=== PATIENT | male | born 1990 | race Caucasian/White ===

== ENCOUNTER 2017-02-14 03:42 | Emergency (ER) | payer BC ==
[2017-02-14 04:05] VITALS: BP 142/61
--- NOTE | 2017-02-14 04:42 | EDM.PDOC ---
ED HPI GENERAL MEDICAL PROBLEM - General Chief Complaint: Lower Extremity Injury/Pain Stated Complaint: PAIN IN LEFT HIP Time Seen by Provider: 02/14/17 04:37 - History of Present Illness INITIAL COMMENTS - FREE TEXT/NARRATIVE: HISTORY AND PHYSICAL: History of present illness: Patient is 26-year-old white male sensory concern of left hip and groin pain that occurred after he was doing some heavy squatting with weights denies any urinary symptoms or other complaints Review of systems: As per history of present illness and below otherwise all systems reviewed and negative. Past medical history: As per history of present illness and as reviewed below otherwise noncontributory. Surgical history: As per history of present illness and as reviewed below otherwise noncontributory. Social history: No reported history of drug or alcohol abuse. Family history: As per history of present illness and as reviewed below otherwise noncontributory. Physical exam: HEENT: Atraumatic, normocephalic, pupils reactive, negative for conjunctival pallor or scleral icterus, mucous membranes moist, throat clear, neck supple, nontender, trachea midline. Lungs: Clear to auscultation, breath sounds equal bilaterally, chest nontender. Heart: S1S2, regular, negative for clicks, rubs, or JVD. Abdomen: Soft, nondistended, nontender. Negative for masses or hepatosplenomegaly. Negative for costovertebral tenderness. Pelvis: Stable nontender. Genitourinary: Deferred. Rectal: Deferred. Extremities: Atraumatic, negative for cords or calf pain. Neurovascular unremarkable. Hip grossly unremarkable Neuro: Awake, alert, oriented. Cranial nerves II through XII unremarkable. Cerebellum unremarkable. Motor and sensory unremarkable throughout. Exam nonfocal. Diagnostics: X-ray left hip UA Therapeutics: None Impression: #1 left hip/groin injury Definitive disposition and diagnosis as appropriate pending reevaluation and review of above. Left Hip Pain Score (Numeric/FACES): 10 - Related Data Allergies Allergy/AdvReac Type Severity Reaction Status Date / Time No Known Allergies Allergy Verified 02/14/17 03:59 Home Meds: Home Meds . [No Known Home Meds] 02/14/17 [History] Past Medical History - Past Health History Medical/Surgical History: Denies Medical/Surgical History - Infectious Disease History Infectious Disease History: Reports: Chicken Pox Social & Family History - Family History Family Medical History: Noncontributory - Tobacco Use Smoking Status *Q: Current Some Day Smoker Years of Tobacco use: 2 Packs/Tins Daily: 0.5 - Recreational Drug Use Recreational Drug Use: No Review of Systems - Review of Systems Review Of Systems: ROS reveals no pertinent complaints other than HPI. ED EXAM, GENERAL - Physical Exam Exam: See Below Course - Vital Signs Last Recorded V/S: Last Vital Signs Temp 36.1 C 02/14/17 03:49 Pulse 88 02/14/17 03:49 Resp 18 02/14/17 03:49 BP 142/61 H 02/14/17 03:49 Pulse Ox 96 02/14/17 03:49 - Orders/Labs/Meds Orders: Active Orders 24 hr Category Date Time Status Hip Min 2V or 3V Lt [CR] Stat Exams 02/14/17 03:59 Taken Labs: Laboratory Tests 02/14/17 Range/Units 04:00 Urine Color YELLOW Urine Appearance CLEAR Urine pH 6.0 (5.0-8.0) Ur Specific [place] 1.025 (1.001-1.035) Urine Protein NEGATIVE (NEGATIVE) mg/dL Urine Glucose (UA) NEGATIVE (NEGATIVE) mg/dL Urine Ketones NEGATIVE (NEGATIVE) mg/dL Urine Occult Blood NEGATIVE (NEGATIVE) Urine Nitrite NEGATIVE (NEGATIVE) Urine Bilirubin NEGATIVE (NEGATIVE) Urine Urobilinogen 1.0 (<2.0) EU/dL Ur Leukocyte Esterase NEGATIVE (NEGATIVE) Urine RBC 0-1 (0-2/HPF) Urine WBC 0-1 (0-5/HPF) Ur Epithelial Cells RARE (NONE-FEW) Amorphous Sediment LIGHT (NEGATIVE) Urine Bacteria RARE (NEGATIVE) Departure - Departure Time of Disposition: 04:40 Disposition: Home, Self-Care 01 Condition: Good Clinical Impression: Hip injury - Discharge Information Referrals: PCP,None [Primary Care Provider] - Additional Instructions: The following information is given to patients seen in the emergency department who are being discharged to home. This information is to outline your options for follow-up care. We provide all patients seen in our emergency department with a follow-up referral. The need for follow-up, as well as the timing and circumstances, are variable depending upon the specifics of your emergency department visit. If you don't have a primary care physician on staff, we will provide you with a referral. We always advise you to contact your personal physician following an emergency department visit to inform them of the circumstance of the visit and for follow-up with them and/or the need for any referrals to a consulting specialist. The emergency department will also refer you to a specialist when appropriate. This referral assures that you have the opportunity for followup care with a specialist. All of these measure are taken in an effort to provide you with optimal care, which includes your followup. Under all circumstances we always encourage you to contact your private physician who remains a resource for coordinating your care. When calling for followup care, please make the office aware that this follow-up is from your recent emergency room visit. If for any reason you are refused follow-up, please contact the [facility] emergency department at and asked to speak to the emergency department charge nurse. [facility] [address], [address] [place] [address] Ultram as prescribed call to schedule routine appointment with orthopedic clinic above crutches as directed return as needed as discussed] - My Orders Last 24 Hours: My Active Orders 02/14/17 03:59 Hip Min 2V or 3V Lt [CR] Stat - Assessment/Plan Last 24 Hours: My Active Orders 02/14/17 03:59 Hip Min 2V or 3V Lt [CR] Stat
--- NOTE | 2017-02-14 14:12 | CR ---
EXAM DATE: 02/14/17 PATIENT'S AGE: 26 Patient: RENATA ROSE Facility: [place], [place] Site . Site : 1990 Study: XRay Hip Left 6437-02/14/2017 4:27:06 AM Ordering Physician: Doctor Alexander Final Report: INDICATION: injury while doing weight lifting/squats pain Lt hip joint since Saturday 02/10 TECHNIQUE: Hip radiograph 2 views left COMPARISON: None FINDINGS: Bones: Alignment is normal. No acute fractures or aggressive bone lesions identified. Joint spaces: Unremarkable. No joint effusion is identified by radiography. Soft tissues: Unremarkable. No radiopaque foreign bodies are seen. IMPRESSION: 1. No acute osseous injuries are noted. Dictated by: Yovany Bender MD @ 02/14/2017 04:31:23 (Electronic Signature) Report Signed by Proxy. [facility]ITAL[facility]
== END 2017-02-14 04:50 | disposition home or self-care (01) ==
LOC: MW.ED 03:42
DX: S79.912A Unspecified injury of left hip, initial encounter (principal); F17.210 Nicotine dependence, cigarettes, uncomplicated; Y93.B9 Activity, other involving muscle strengthening exercises
CPT/HCPCS: 73502-26-LT; 73502-LT; 81001; 99282; 99283

== ENCOUNTER 2017-02-19 20:43 | Observation (INO) | payer BC ==
[2017-02-19] MEDS ORDERED: Sodium Chloride 0.9% 1,000 ML IV ONE (20:55)
--- NOTE | 2017-02-19 20:56 | EDM.PDOC ---
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 This is relevant due to CT findings. I did discuss with radiology finding of deep induration and gas in the trochanter and trochanteric region consistent with injecting himself as well as similar findings on lower abdomen. He has presented within last few days for left hip pain an x-ray was performed there is no redness warmth he does have pain with ambulation of the hip but is not tender with passive range of motion. Since initial complaint the muscle cramping and dark urine as he is a heavy weight cafe worker performing squats rhabdomyolysis is in the cards and certainly does have a mild rhabdomyolysis No fever nausea vomiting chills sweats no chest pain shortness breath headache dizziness or palpitation no bowel symptoms Review of systems: As per history of present illness and below otherwise all systems reviewed and negative. Past medical history: As per history of present illness and as reviewed below otherwise noncontributory. Surgical history: As per history of present illness and as reviewed below otherwise noncontributory. Social history: No reported history of drug or alcohol abuse. Family history: As per history of present illness and as reviewed below otherwise noncontributory. Physical exam: HEENT: Atraumatic, normocephalic, pupils reactive, negative for conjunctival pallor or scleral icterus, mucous membranes moist, throat clear, neck supple, nontender, trachea midline. Lungs: Clear to auscultation, breath sounds equal bilaterally, chest nontender. Heart: S1S2, regular, negative for clicks, rubs, or JVD. Abdomen: Soft, nondistended, nontender. Negative for masses or hepatosplenomegaly. Negative for costovertebral tenderness. Pelvis: Stable nontender. Genitourinary: Deferred. Rectal: Deferred. Extremities: Atraumatic, negative for cords or calf pain. Neurovascular unremarkable. Left hip is tender with palpation over trochanter Neuro: Awake, alert, oriented. Cranial nerves II through XII unremarkable. Cerebellum unremarkable. Motor and sensory unremarkable throughout. Exam nonfocal. Diagnostics: []CBC CMP UA Cardiac enzymes Therapeutics: []1 L normal saline bolus Morphine 2 mg IV Zofran 8 mg IV We will admit to Alex Johnson has been seen and evaluated the patient recommend consulting ortho concerning the hip Impression: []Muscle cramping Rhabdomyolysis Abdominal pain Dehydration Hypotension after 1 L resolved Elevated liver function CT findings consistent with supplement injection Left hip pain Definitive disposition and diagnosis as appropriate pending reevaluation and review of above. Left Hip Pain Score (Numeric/FACES): 10 - Related Data Allergies Allergy/AdvReac Type Severity Reaction Status Date / Time No Known Allergies Allergy Verified 02/19/17 20:57 Home Meds: Home Meds . [No Known Home Meds] 02/14/17 [History] Past Medical History - Past Health History Medical/Surgical History: Denies Medical/Surgical History - Infectious Disease History Infectious Disease History: Reports: Chicken Pox Social & Family History - Family History Family Medical History: Noncontributory - Tobacco Use Smoking Status *Q: Current Some Day Smoker Years of Tobacco use: 2 Packs/Tins Daily: 0.5 - Recreational Drug Use Recreational Drug Use: No Review of Systems - Review of Systems Review Of Systems: ROS reveals no pertinent complaints other than HPI. ED EXAM, GENERAL - Physical Exam Exam: See Below Course - Vital Signs Last Recorded V/S: Last Vital Signs Temp 36.5 C 02/19/17 20:51 Pulse 116 H 02/19/17 23:40 Resp 20 02/19/17 23:40 BP 165/93 H 02/19/17 23:40 Pulse Ox 91 L 02/19/17 23:40 - Orders/Labs/Meds Orders: Active Orders 24 hr Category Date Time Status Abdomen Pelvis w Cont [CT] Stat Exams 02/19/17 21:19 Taken CHLAMYDIA TRACHOMATIS/GC AMPLF Stat Lab 02/19/17 20:59 Received CULTURE BLOOD [BC] Stat Lab 02/19/17 21:28 Received CULTURE BLOOD [BC] Stat Lab 02/19/17 21:33 Received HYDROmorphone [Dilaudid] Med 02/19/17 23:43 Active 0.5 mg IVPUSH ONETIME PRN Sodium Chloride 0.9% [Normal Saline] 1,000 ml Med 02/19/17 22:00 Active IV STAT Blood Culture x2 Reflex Set [OM.PC] Stat Oth 02/19/17 21:19 Ordered Medication Orders Hydromorphone HCl (Dilaudid) 0.5 mg IVPUSH ONETIME PRN PRN Reason: Pain Sodium Chloride (Normal Saline) 1,000 mls @ 200 mls/hr IV STAT MICHAEL Last Admin: 02/19/17 21:55 Dose: 200 mls/hr Labs: Laboratory Tests 02/19/17 02/19/17 02/19/17 Range/Units 20:59 21:07 21:07 WBC 14.15 H (4.0-11.0) K/uL RBC 5.52 (4.50-5.90) M/uL Hgb 16.6 (13.0-17.0) g/dL Hct 47.1 (38.0-50.0) % MCV 85.3 (80.0-98.0) fL MCH 30.1 (27.0-32.0) pg MCHC 35.2 (31.0-37.0) g/dL RDW Std Deviation 42.7 (28.0-62.0) fl RDW Coeff of Lew 14 (11.0-15.0) % Plt Count 190 (150-400) K/uL MPV 12.30 H (7.40-12.00) fL Neut % (Auto) CONTROL SYSTEM COMPUTER SCIENTIST Lymph % (Auto) CONTROL SYSTEM COMPUTER SCIENTIST Cecil % (Auto) CONTROL SYSTEM COMPUTER SCIENTIST Eos % (Auto) CONTROL SYSTEM COMPUTER SCIENTIST Baso % (Auto) CONTROL SYSTEM COMPUTER SCIENTIST Neut # (Auto) CONTROL SYSTEM COMPUTER SCIENTIST Lymph # (Auto) CONTROL SYSTEM COMPUTER SCIENTIST Cecil # (Auto) CONTROL SYSTEM COMPUTER SCIENTIST Eos # (Auto) CONTROL SYSTEM COMPUTER SCIENTIST Baso # (Auto) CONTROL SYSTEM COMPUTER SCIENTIST Add Manual Diff YES Neutrophils % (Manual) 57 (48.0-80.0) % Band Neutrophils % 26 % Lymphocytes % (Manual) 7 L (16.0-40.0) % Monocytes % (Manual) 9 (0.0-15.0) % Basophils % (Manual) 1 (0.0-1.5) % Nucleated RBC % 0.0 /100WBC Absolute Seg Neuts 8.1 Band Neutrophils # 3.7 Lymphocytes # (Manual) 1.0 Monocytes # (Manual) 1.3 Basophils # (Manual) 0 Nucleated RBCs # 0 K/uL Lactate (0.20-2.00) mmol/L Sodium 131 L (136-146) mmol/L Potassium 4.1 (3.5-5.1) mmol/L Chloride 97 L (98-110) mmol/L Carbon Dioxide 21 (21-31) mmol/L BUN 21 (6.0-23.0) mg/dL Creatinine 1.1 (0.6-1.5) mg/dL Est Cr Clr Drug Dosing 109.74 mL/min Estimated GFR (MDRD) > 60.0 ml/min Glucose 131 H (60-110) mg/dL Calcium 9.0 (8.8-10.8) mg/dL Total Bilirubin 2.5 H (0.1-1.5) mg/dL AST 275 H (5-40) IU/L ALT 247 H (8-54) IU/L Alkaline Phosphatase 106 (40-150) Creatine Kinase 915 H (9-236) IU/L CK-MB (CK-2) 5.4 (0-6.6) ng/ml Troponin I (0.0-0.29) NG/ML Total Protein 6.6 (6.0-8.0) g/dL Albumin 3.0 L (3.5-5.0) g/dL Globulin 3.6 H (2.0-3.5) g/dL Albumin/Globulin Ratio 0.8 L (1.3-2.8) Urine Color DARK YELLOW Urine Appearance SLT CLOUDY Urine pH 6.0 (5.0-8.0) Ur Specific [place] 1.025 (1.001-1.035) Urine Protein >=300 (NEGATIVE) mg/dL Urine Glucose (UA) NEGATIVE (NEGATIVE) mg/dL Urine Ketones NEGATIVE (NEGATIVE) mg/dL Urine Occult Blood LARGE H (NEGATIVE) Urine Nitrite NEGATIVE (NEGATIVE) Urine Bilirubin MODERATE H (NEGATIVE) Urine Ictotest NEGATIVE Urine Urobilinogen >=8.0 H (<2.0) EU/dL Ur Leukocyte Esterase NEGATIVE (NEGATIVE) Urine RBC 0-2 (0-2/HPF) Urine WBC 1-3 (0-5/HPF) Ur Epithelial Cells FEW (NONE-FEW) Amorphous Sediment FEW (NEGATIVE) Urine Bacteria FEW (NEGATIVE) Fine Granular Casts RARE (NEGATIVE) Urine Mucus FEW (NONE-MOD) 02/19/17 02/19/17 Range/Units 21:07 21:07 WBC (4.0-11.0) K/uL RBC (4.50-5.90) M/uL Hgb (13.0-17.0) g/dL Hct (38.0-50.0) % MCV (80.0-98.0) fL MCH (27.0-32.0) pg MCHC (31.0-37.0) g/dL RDW Std Deviation (28.0-62.0) fl RDW Coeff of Lew (11.0-15.0) % Plt Count (150-400) K/uL MPV (7.40-12.00) fL Neut % (Auto) Lymph % (Auto) Cecil % (Auto) Eos % (Auto) Baso % (Auto) Neut # (Auto) Lymph # (Auto) Cecil # (Auto) Eos # (Auto) Baso # (Auto) Add Manual Diff Neutrophils % (Manual) (48.0-80.0) % Band Neutrophils % % Lymphocytes % (Manual) (16.0-40.0) % Monocytes % (Manual) (0.0-15.0) % Basophils % (Manual) (0.0-1.5) % Nucleated RBC % /100WBC Absolute Seg Neuts Band Neutrophils # Lymphocytes # (Manual) Monocytes # (Manual) Basophils # (Manual) Nucleated RBCs # K/uL Lactate 1.6 (0.20-2.00) mmol/L Sodium (136-146) mmol/L Potassium (3.5-5.1) mmol/L Chloride (98-110) mmol/L Carbon Dioxide (21-31) mmol/L BUN (6.0-23.0) mg/dL Creatinine (0.6-1.5) mg/dL Est Cr Clr Drug Dosing mL/min Estimated GFR (MDRD) ml/min Glucose (60-110) mg/dL Calcium (8.8-10.8) mg/dL Total Bilirubin (0.1-1.5) mg/dL AST (5-40) IU/L ALT (8-54) IU/L Alkaline Phosphatase (40-150) Creatine Kinase (9-236) IU/L CK-MB (CK-2) (0-6.6) ng/ml Troponin I 0.22 (0.0-0.29) NG/ML Total Protein (6.0-8.0) g/dL Albumin (3.5-5.0) g/dL Globulin (2.0-3.5) g/dL Albumin/Globulin Ratio (1.3-2.8) Urine Color Urine Appearance Urine pH (5.0-8.0) Ur Specific [place] (1.001-1.035) Urine Protein (NEGATIVE) mg/dL Urine Glucose (UA) (NEGATIVE) mg/dL Urine Ketones (NEGATIVE) mg/dL Urine Occult Blood (NEGATIVE) Urine Nitrite (NEGATIVE) Urine Bilirubin (NEGATIVE) Urine Ictotest Urine Urobilinogen (<2.0) EU/dL Ur Leukocyte Esterase (NEGATIVE) Urine RBC (0-2/HPF) Urine WBC (0-5/HPF) Ur Epithelial Cells (NONE-FEW) Amorphous Sediment (NEGATIVE) Urine Bacteria (NEGATIVE) Fine Granular Casts (NEGATIVE) Urine Mucus (NONE-MOD) Meds: Medications Generic Name Dose Route Start Last Admin Trade Name Freq PRN Reason Stop Dose Admin Hydromorphone HCl 0.5 mg 02/19/17 23:43 Dilaudid IVPUSH ONETIME PRN Pain Sodium Chloride 1,000 mls @ 200 mls/hr 02/19/17 22:00 02/19/17 21:55 Normal Saline IV 200 mls/hr STAT MICHAEL Administration Discontinued Medications Generic Name Dose Route Start Last Admin Trade Name Freq PRN Reason Stop Dose Admin Hydromorphone HCl 0.5 mg 02/19/17 23:42 02/19/17 23:47 Dilaudid IVPUSH 02/19/17 23:43 0.5 mg ONETIME ONE Administration Sodium Chloride 1,000 mls @ 999 mls/hr 02/19/17 20:55 02/19/17 21:11 Normal Saline IV 02/19/17 21:55 999 mls/hr STAT ONE Administration Iopamidol 100 ml 02/19/17 22:14 02/19/17 22:25 Isovue Multipack-370 (76%) IVPUSH 02/19/17 22:15 100 ml ONETIME STA Administration Morphine Sulfate 2 mg 02/19/17 21:20 02/19/17 21:33 Morphine IV 02/19/17 21:21 2 mg ONETIME ONE Administration Ondansetron HCl 8 mg 02/19/17 21:20 02/19/17 21:33 Zofran IVPUSH 02/19/17 21:21 8 mg ONETIME ONE Administration Departure - Departure Time of Disposition: 00:03 Disposition: Refer to Observation Condition: Poor Clinical Impression: Rhabdomyolysis, Elevated liver function tests, Dehydration - Discharge Information Referrals: PCP,None [Primary Care Provider] - Forms: ED Department Discharge - My Orders Last 24 Hours: My Active Orders 02/19/17 20:59 CHLAMYDIA TRACHOMATIS/GC AMPLF Stat 02/19/17 21:19 Abdomen Pelvis w Cont [CT] Stat Blood Culture x2 Reflex Set [OM.PC] Stat 02/19/17 21:28 CULTURE BLOOD [BC] Stat 02/19/17 21:33 CULTURE BLOOD [BC] Stat 02/19/17 22:00 Sodium Chloride 0.9% [Normal Saline] 1,000 ml IV STAT 02/19/17 23:43 HYDROmorphone [Dilaudid] 0.5 mg IVPUSH ONETIME PRN - Assessment/Plan Last 24 Hours: My Active Orders 02/19/17 20:59 CHLAMYDIA TRACHOMATIS/GC AMPLF Stat 02/19/17 21:19 Abdomen Pelvis w Cont [CT] Stat Blood Culture x2 Reflex Set [OM.PC] Stat 02/19/17 21:28 CULTURE BLOOD [BC] Stat 02/19/17 21:33 CULTURE BLOOD [BC] Stat 02/19/17 22:00 Sodium Chloride 0.9% [Normal Saline] 1,000 ml IV STAT 02/19/17 23:43 HYDROmorphone [Dilaudid] 0.5 mg IVPUSH ONETIME PRN
[2017-02-19] MEDS ORDERED: Morphine 10 MG/ML Syringe IV ONE (21:20)
[2017-02-19] MEDS ORDERED: Ondansetron 4 MG/2 ML SDV IVPUSH ONE (21:20)
[2017-02-19 21:41] LABS: CHLORIDE,CL 97 mmol/L (98-110); SODIUM,NA 131 mmol/L (136-146)
[2017-02-19] MEDS ORDERED: Sodium Chloride 0.9% 1,000 ML IV SCH (22:00)
[2017-02-19] MEDS ORDERED: Iopamidol 755 MG/ML 500 ML Multipack Bottle IVPUSH STA (22:14)
[2017-02-19] MEDS ORDERED: HYDROmorphone 2 MG/ML Syringe IVPUSH ONE (23:42)
[2017-02-19] MEDS ORDERED: HYDROmorphone 2 MG/ML Syringe IVPUSH PRN (23:43)
[2017-02-20] MEDS ORDERED: Sodium Chloride 0.9% 1,000 ML IV ONE (00:47)
[2017-02-20] MEDS ORDERED: Acetaminophen 325 MG Tab PO PRN (00:50)
[2017-02-20] MEDS ORDERED: Ondansetron 4 MG/2 ML SDV IVPUSH PRN (00:51)
[2017-02-20] MEDS: Sodium Chloride 0.9% 1,000 ML IV SCH ×3 (02:10→11:09)
[2017-02-20] MEDS: Morphine 2 MG/ML Syringe IVPUSH PRN ×4 (02:21→09:01)
[2017-02-20] MEDS ORDERED: FLU Vacc QS 2017-18 (36mos UP)/PF 60 MCG/0.5 ML Syringe IM ONE (02:30)
[2017-02-20] MEDS ORDERED: cefTRIAXone 1,000 MG in Sodium Chloride 0.9% 50 ML IV ONE (05:06)
[2017-02-20 05:10] LABS: CHLORIDE,CL 100 mmol/L (98-110); SODIUM,NA 133 mmol/L (136-146)
[2017-02-20] MEDS ORDERED: cefTRIAXone 1 GM in Premix Bag 1 BAG IV ONE (05:15)
--- NOTE | 2017-02-20 09:18 | PCM.HP ---
H&P History of Present Illness - General Date of Service: 02/20/17 Admit Problem/Dx: Admission Diagnosis/Problem Admission Diagnosis/Problem Rhabdomyolysis - History of Present Illness Initial Comments - Free Text/Narative: 26 year old male admitted this morning for rhabdomyolysis, left hip pain and CT scan showing focal gas in the left greater trochanteric region. Patient states he injects Testosterone for muscle gain. He injected himself 2 weeks ago in the left hip. He was doing fine until he worked out his leg a few days later. He then developed left hip pain with walking. He was seen in ED on 02/14 and had XR of left hip that was normal. Over the next few days he developed worsening of left him pain, fever, malaise, chills, night sweats and diffuse malaise everywhere. He is having moderate to severe tenderness over the anterior hip. He complains of pain all over. He complains of pain in right hip as as well but he is able to move it with minimal difficulty. In the ED he was found to have temp of 38.2, hr 110-130, WBC count 14k, UA positive for blood. Kidney function was preserved with BUN 2.1 & Cr 1.1. CT Scan revealed focal gas at the greater trochanter. He was started on fluids, morphine and given Rocephin IV 1 gm. Left Hip Pain Score (Numeric/FACES): 9 - Related Data Allergies/Adverse Reactions: Allergies Allergy/AdvReac Type Severity Reaction Status Date / Time No Known Allergies Allergy Verified 02/19/17 20:57 Home Medications: Home Meds . [No Known Home Meds] 02/14/17 [History] Past Medical History - Past Health History Medical/Surgical History: Denies Medical/Surgical History HEENT History: Reports: Impaired Vision - Infectious Disease History Infectious Disease History: Reports: Chicken Pox - Past Surgical History HEENT Surgical History: Reports: None Social & Family History - Family History Family Medical History: Noncontributory - Tobacco Use Smoking Status *Q: Current Every Day Smoker Years of Tobacco use: 2 Packs/Tins Daily: 0.5 Second Hand Smoke Exposure: No - Caffeine Use Caffeine Use: Reports: Coffee, Energy Drinks, Soda, Tea Caffeine Use Comment: 2-3drinks each/day - Recreational Drug Use Recreational Drug Use: No H&P Review of Systems - Review of Systems: Review Of Systems: See Below General: Reports: Fever, Chills, Malaise, Weakness, Night Sweats, Diaphoresis Pulmonary: Reports: Shortness of Breath Cardiovascular: Reports: Palpitations Gastrointestinal: Reports: Abdominal Pain Genitourinary: Reports: Hematuria Musculoskeletal: Reports: Joint Pain, Joint Swelling, Muscle Pain Skin: Reports: Diaphoresis Neurological: Reports: No Symptoms Exam - Exam Exam: See Below - Vital Signs Vital Signs: Last Vital Signs Temp 37.3 C 02/20/17 08:01 Pulse 122 H 02/20/17 08:01 Resp 20 02/20/17 08:01 BP 143/84 H 02/20/17 08:01 Pulse Ox 94 L 02/20/17 08:01 Weight: 131.54 kg - Exam General: Alert, Oriented, Moderate Distress HEENT: Conjunctiva Clear Neck: Supple, Trachea Midline Lungs: Normal Respiratory Effort Cardiovascular: Tachycardia GI/Abdominal Exam: Tender Extremities: Other (left hip rom severely restricted. Slightest attempt to internally or externally rotate hip causes severe pain. Tenderness and induration present over anterior hip and groin. No redness of overlying skin. Full ROM of Right hip. No weakness of left foot digits. ). No: Pedal Edema Skin: Moist. No: Rash - Patient Data Lab Results Last 24 hrs: Laboratory Results - last 24 hr 02/20/17 02/20/17 Range/Units 04:20 04:20 WBC 13.88 H (4.0-11.0) K/uL RBC 5.12 (4.50-5.90) M/uL Hgb 15.0 (13.0-17.0) g/dL Hct 44.1 (38.0-50.0) % MCV 86.1 (80.0-98.0) fL MCH 29.3 (27.0-32.0) pg MCHC 34.0 (31.0-37.0) g/dL RDW Std Deviation 43.7 (28.0-62.0) fl RDW Coeff of Lew 14 (11.0-15.0) % Plt Count 164 (150-400) K/uL MPV 12.90 H (7.40-12.00) fL Add Manual Diff YES Neutrophils % (Manual) 56 (48.0-80.0) % Band Neutrophils % 26 % Lymphocytes % (Manual) 12 L (16.0-40.0) % Monocytes % (Manual) 6 (0.0-15.0) % Nucleated RBC % 0.0 /100WBC Absolute Seg Neuts 7.8 Band Neutrophils # 3.6 Lymphocytes # (Manual) 1.7 Monocytes # (Manual) 0.8 Nucleated RBCs # 0 K/uL Sodium 133 L (136-146) mmol/L Potassium 4.1 (3.5-5.1) mmol/L Chloride 100 (98-110) mmol/L Carbon Dioxide 23 (21-31) mmol/L BUN 18 (6.0-23.0) mg/dL Creatinine 0.9 (0.6-1.5) mg/dL Est Cr Clr Drug Dosing 134.31 mL/min Estimated GFR (MDRD) > 60.0 ml/min Glucose 132 H (60-110) mg/dL Calcium 8.0 L (8.8-10.8) mg/dL Creatine Kinase 709 H (9-236) IU/L Result Diagrams: 02/20/17 04:20 02/20/17 04:20 *Q Meaningful Use (ADM) - VTE *Q VTE Criteria *Q: - Stroke *Q Stroke Criteria *Q: - AMI *Q AMI Criteria *Q: Problem List Initiated/Reviewed/Updated: Yes Orders Last 24hrs: Active Orders 24 hr Category Date Time Status EKG 12 Lead [EKG Documentation Completion] [RC] ROUTINE Care 02/20/17 05:04 Active Regular Diet [DIET] Diet 02/20/17 Breakfast Active CXR [Chest 1V Frontal] [CR] Routine Exams 02/20/17 05:05 Taken CULTURE BLOOD [BC] Stat Lab 02/20/17 05:19 Received CULTURE BLOOD [BC] Stat Lab 02/20/17 05:29 Received VANCOMYCIN TROUGH [CHEM] Routine Lab 02/21/17 08:00 Ordered Acetaminophen [Tylenol] Med 02/20/17 00:50 Active 650 mg PO Q6H PRN Morphine Med 02/20/17 00:50 Active 2 mg IVPUSH Q2H PRN Ondansetron [Zofran] Med 02/20/17 00:51 Active 4 mg IVPUSH Q3H PRN Sodium Chloride 0.9% [Normal Saline] 1,000 ml Med 02/20/17 01:00 Active IV ASDIRECTED Vancomycin 1,500 mg Med 02/20/17 09:00 Active Sodium Chloride 0.9% [Normal Saline] 500 ml IV Q8H Vancomycin Pharmacy to Dose [Pharmacy to Dose - Med 02/20/17 08:30 Active Vancomycin] 1 dose .XX ASDIRECTED Blood Culture x2 Reflex Set [OM.PC] Stat Oth 02/20/17 05:05 Ordered Medication Orders Acetaminophen (Tylenol) 650 mg PO Q6H PRN PRN Reason: Pain Last Admin: 02/20/17 05:03 Dose: 650 mg Sodium Chloride (Normal Saline) 1,000 mls @ 300 mls/hr IV ASDIRECTED MICHAEL Last Admin: 02/20/17 05:59 Dose: 300 mls/hr Infusion: 02/20/17 05:30 Dose: 300 mls/hr Admin: 02/20/17 02:10 Dose: 300 mls/hr Vancomycin HCl 1,500 mg/ (Sodium Chloride) 500 mls @ 250 mls/hr IV Q8H [facility] Last Admin: 02/20/17 09:02 Dose: 250 mls/hr Morphine Sulfate (Morphine) 2 mg IVPUSH Q2H PRN PRN Reason: Pain Last Admin: 02/20/17 09:01 Dose: 2 mg Admin: 02/20/17 06:39 Dose: 2 mg Admin: 02/20/17 04:26 Dose: 2 mg Admin: 02/20/17 02:21 Dose: 2 mg Ondansetron HCl (Zofran) 4 mg IVPUSH Q3H PRN PRN Reason: Nausea/Vomiting Vancomycin HCl (Pharmacy To Dose - Vancomycin) 1 dose .XX ASDIRECTED [facility] Assessment/Plan Comment:: Assessment: 1. Bacteremia - gram positive clusters 2. Rhabdomyolyis 3. Left Hip Pain, tenderness and Induration 4. Focal gas at greater trochanter, on CT 5. Nonspecific soft tissue thickening of lower ventral abdominal wall, CT 6. Scattered nonspecific noncalcified pulmonary nodules within lung bases, on CT 7. Hepatomegaly and Splenomegaly 8. Leukocytosis 9. Hematuria 10. Elevated LFT Plan: Patient exam findings concerning for severely restricted left hip, with severe anterior pain and tenderness. There is also palpable induration at the anterior hip and groin. Distal extremties ar not painful, swollen or tender and he is able to move both feet and all of his toes. Findings combined with labs/imaging are concerning for either soft tissue or joint infection. Contacted Orthopedics and they recommended transfer to higher care facility. Due to this decision was made to transfer patient to [place] for ID and/or Ortho consult. Patient was informed and he agrees. [facility] was contacted and Dr. Holman has accepted the patient. He is currently on IV NS @ 300 ml/hour. In the ED he was given Ceftriaxone 1 gm IV. On the floor he was given one dose of Levaquin 750 mg IV & Vancomycin. He is receiving Morphine IV for pain. Patient will be transferred via ambulance. He will be given IV NS @ 200 ml/hour during the car.
[2017-02-20] MEDS ORDERED: Morphine 2 MG/ML Syringe IVPUSH ONE (10:10)
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
--- NOTE | 2017-02-20 10:34 | CR ---
EXAM DATE: 02/20/17 PATIENT'S AGE: 26 Patient: RENATA ROSE Facility: [place], [place] Site . Site : 1990 Study: XRay Chest [id number]/26/2017 5:46:38 AM Ordering Physician: Jackie Cutler Final Report: INDICATION: tachycardia, fever TECHNIQUE: Chest 1 view COMPARISON: None FINDINGS: Cardiovascular and mediastinum: Heart size and vasculature are normal in caliber and appearance. Mediastinum is within normal limits. Lungs and pleural space: No focal consolidation. No sign of pleural effusion. No pneumothorax. Bones and soft tissues: No significant findings. IMPRESSION: No acute cardiopulmonary disease Dictated by Alberto Mccain MD @ 02/20/2017 6:00:46 AM Dictated by: Alberto Mccain MD @ 02/20/2017 06:01:04 (Electronic Signature) Report Signed by Proxy. JAEL
[2017-02-20 10:47] VITALS: BP 165/72
[2017-02-20] MEDS ORDERED: Levofloxacin/Dextrose 5%-Water 750 MG in Premix Bag 1 BAG IV SCH (11:00)
--- NOTE | 2017-02-20 11:14 | PCM.DCSUM1 ---
Discharge Summary - Hospital Course Free Text/Narrative:: Assessment: 1. Bacteremia - gram positive clusters 2. Rhabdomyolyis 3. Left Hip Pain, tenderness and Induration 4. Focal gas at greater trochanter, on CT 5. Nonspecific soft tissue thickening of lower ventral abdominal wall, CT 6. Scattered nonspecific noncalcified pulmonary nodules within lung bases, on CT 7. Hepatomegaly and Splenomegaly 8. Leukocytosis 9. Hematuria 10. Elevated LFT Plan: Patient exam findings concerning for severely restricted left hip, with severe anterior pain and tenderness. There is also palpable induration at the anterior hip and groin. Distal extremties ar not painful, swollen or tender and he is able to move both feet and all of his toes. Findings combined with labs/imaging are concerning for either soft tissue or joint infection. Contacted Orthopedics and they recommended transfer to higher care facility. Due to this decision was made to transfer patient to [place] for ID and/or Ortho consult. Patient was informed and he agrees. [place] [facility] was contacted and Dr. Holman has accepted the patient. He is currently on IV NS @ 300 ml/hour. In the ED he was given Ceftriaxone 1 gm IV. On the floor he was given one dose of Levaquin 750 mg IV & Vancomycin. He is receiving Morphine IV for pain. Patient will be transferred via ambulance. He will be given IV NS @ 200 ml/hour during the car. - Discharge Data Discharge Date: 02/20/17 Discharge Disposition: DC/Tfer to [facility] Condition: Stable - Discharge Plan Home Medications: Home Meds . [No Known Home Meds] 02/14/17 [History] Forms: ED Department Discharge Referrals: PCP,None [Primary Care Provider] - - Discharge Summary/Plan Comment Discharge Summary/Plan Comment: Patient transferred to [facility]. Accepting physician is Dr. Jorge Holman - Patient Data Vitals - Most Recent: Last Vital Signs Temp 37.1 C 02/20/17 10:46 Pulse 124 H 02/20/17 10:46 Resp 22 H 02/20/17 10:46 BP 165/72 H 02/20/17 10:46 Pulse Ox 96 02/20/17 10:46 Weight - Most Recent: 131.54 kg I&O - Last 24 hours: Intake & Output 02/19/17 02/20/17 02/20/17 22:59 06:59 14:59 Intake Total 4250 Output Total 500 Balance 3750 Lab Results - Last 24 hrs: Laboratory Results - last 24 hr 02/20/17 02/20/17 Range/Units 04:20 04:20 WBC 13.88 H (4.0-11.0) K/uL RBC 5.12 (4.50-5.90) M/uL Hgb 15.0 (13.0-17.0) g/dL Hct 44.1 (38.0-50.0) % MCV 86.1 (80.0-98.0) fL MCH 29.3 (27.0-32.0) pg MCHC 34.0 (31.0-37.0) g/dL RDW Std Deviation 43.7 (28.0-62.0) fl RDW Coeff of Lew 14 (11.0-15.0) % Plt Count 164 (150-400) K/uL MPV 12.90 H (7.40-12.00) fL Add Manual Diff YES Neutrophils % (Manual) 56 (48.0-80.0) % Band Neutrophils % 26 % Lymphocytes % (Manual) 12 L (16.0-40.0) % Monocytes % (Manual) 6 (0.0-15.0) % Nucleated RBC % 0.0 /100WBC Absolute Seg Neuts 7.8 Band Neutrophils # 3.6 Lymphocytes # (Manual) 1.7 Monocytes # (Manual) 0.8 Nucleated RBCs # 0 K/uL Sodium 133 L (136-146) mmol/L Potassium 4.1 (3.5-5.1) mmol/L Chloride 100 (98-110) mmol/L Carbon Dioxide 23 (21-31) mmol/L BUN 18 (6.0-23.0) mg/dL Creatinine 0.9 (0.6-1.5) mg/dL Est Cr Clr Drug Dosing 134.31 mL/min Estimated GFR (MDRD) > 60.0 ml/min Glucose 132 H (60-110) mg/dL Calcium 8.0 L (8.8-10.8) mg/dL Creatine Kinase 709 H (9-236) IU/L Med Orders - Current: Current Medications Acetaminophen (Tylenol) 650 mg PO Q6H PRN PRN Reason: Pain Last Admin: 02/20/17 05:03 Dose: 650 mg Sodium Chloride (Normal Saline) 1,000 mls @ 300 mls/hr IV ASDIRECTED [facility] Last Admin: 02/20/17 05:59 Dose: 300 mls/hr Vancomycin HCl 1,500 mg/ (Sodium Chloride) 500 mls @ 250 mls/hr IV Q8H [facility] Last Admin: 02/20/17 09:02 Dose: 250 mls/hr Levofloxacin/Dextrose 750 mg/ (Premix) 150 mls @ 100 mls/hr IV Q24H [facility] Last Admin: 02/20/17 11:08 Dose: 100 mls/hr Morphine Sulfate (Morphine) 2 mg IVPUSH Q2H PRN PRN Reason: Pain Last Admin: 02/20/17 09:01 Dose: 2 mg Ondansetron HCl (Zofran) 4 mg IVPUSH Q3H PRN PRN Reason: Nausea/Vomiting Vancomycin HCl (Pharmacy To Dose - Vancomycin) 1 dose .XX ASDIRECTED [facility] Discontinued Medications Hydromorphone HCl (Dilaudid) 0.5 mg IVPUSH ONETIME ONE Stop: 02/19/17 23:43 Last Admin: 02/19/17 23:47 Dose: 0.5 mg Hydromorphone HCl (Dilaudid) 0.5 mg IVPUSH ONETIME PRN PRN Reason: Pain Sodium Chloride (Normal Saline) 1,000 mls @ 999 mls/hr IV STAT ONE Stop: 02/19/17 21:55 Last Admin: 02/19/17 21:11 Dose: 999 mls/hr Sodium Chloride (Normal Saline) 1,000 mls @ 200 mls/hr IV STAT [facility] Last Admin: 02/19/17 21:55 Dose: 200 mls/hr Sodium Chloride (Normal Saline) 1,000 mls @ 999 mls/hr IV .BOLUS ONE Stop: 02/20/17 01:47 Last Admin: 02/20/17 01:03 Dose: 999 mls/hr Ceftriaxone Sodium/Dextrose 1 (gm/ Premix) 50 mls @ 100 mls/hr IV ONETIME ONE Stop: 02/20/17 05:44 Last Admin: 02/20/17 06:01 Dose: 100 mls/hr Iopamidol (Isovue Multipack-370 (76%)) 100 ml IVPUSH ONETIME STA Stop: 02/19/17 22:15 Last Admin: 02/19/17 22:25 Dose: 100 ml Morphine Sulfate (Morphine) 2 mg IV ONETIME ONE Stop: 02/19/17 21:21 Last Admin: 02/19/17 21:33 Dose: 2 mg Morphine Sulfate (Morphine) 2 mg IVPUSH ONETIME ONE Stop: 02/20/17 10:11 Last Admin: 02/20/17 10:20 Dose: 2 mg Ondansetron HCl (Zofran) 8 mg IVPUSH ONETIME ONE Stop: 02/19/17 21:21 Last Admin: 02/19/17 21:33 Dose: 8 mg *Q Meaningful Use (DIS) - VTE *Q VTE Criteria *Q: - Stroke *Q Stroke Criteria *Q: - AMI *Q AMI Criteria *Q:
== END 2017-02-20 11:45 | disposition critical access hospital (66) ==
LOC: MW.ED 20:43 → MW.MS 02-20 00:04
PROVIDERS: ADMIT Internal Medicine; ATTEND Internal Medicine
DX: M62.82 Rhabdomyolysis (principal); R78.81 Bacteremia; M25.552 Pain in left hip; F17.210 Nicotine dependence, cigarettes, uncomplicated; M89.8X8 Other specified disorders of bone, other site; M79.89 Other specified soft tissue disorders; R91.8 Other nonspecific abnormal finding of lung field; R16.0 Hepatomegaly, not elsewhere classified; R16.1 Splenomegaly, not elsewhere classified; D72.829 Elevated white blood cell count, unspecified; R31.9 Hematuria, unspecified; R94.5 Abnormal results of liver function studies
CPT/HCPCS: 36415; 71010; 74177; 80048; 80053; 81001; 82550; 82553; 83605; 84484; 85025; 87040; 87077; 87186; 87491; 87591; 96361; 96365; 96375; 96376; 99285; A9270; G0378; J0696; J1170; J1956; J2270; J2405; J3370; J7040; Q9967; 96374; 99283